=== PATIENT | female | born 1965 | race Caucasian/White ===

== ENCOUNTER 2018-05-22 07:03 | Emergency (ER) | payer BC ==
--- OUTSIDE RECORDS SUMMARY | 2018-05-22 07:26 | XMS REPORT | Continuity of Care Document ---
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 Payers Date Identification Numbers Payment Provider Subscriber Policy Number: [id number] [facility] Plan Adriano Dunham PayID: [id number] [address] [place] [address] Effective: 2012 Policy Number: [id number] [facility] Commercial Jmaes Dunham PayID: [id number] [address] [address] [place] [address] Advance Directives Description No Information Available Problems Date Description Provider Status Onset: 05/09/2013 Vitamin D deficiency Meliza Sanchez MD Active Onset: 05/09/2013 Osteoporosis Meliza Sanchez MD Active Onset: 04/18/2013 Family history of polyp of colon Meliza Sanchez MD Active Family History Date Family Member(s) Observation Comments : Father due to complications (08/10/2016) from Lewy Body Dementia (age 79 Years) Father Hypertension Father Hypercholesterolemia Onset: (age 73 Mother Cancer, Lung Years) Paternal Aunts Cancer, Colon 2 paternal uncles with colon cancer Social History Type Date Description Comments Sex Unknown Education Highest level completed, 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 [employer] Degree [place] Marital Status Lives With Spouse Diet Healthy, Well Balanced Smoke-Free Home is smoke-free Pets 2 dogs 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 Dominance RIGHT-handed Abuse No history of abuse Hobbies Biking Hobbies Running Hobbies Cross Country Skiing Hobbies Swimming Tobacco Use Start: Unknown Never Smoked Cigarettes ETOH Use Occasionally consumes alcohol Tobacco Use Start: Unknown Patient has never smoked Smoking Status Reviewed: 05/13/18 Patient has never smoked Allergies, Adverse Reactions, Alerts Date Description Reaction Status Severity Comments 04/18/2013 Iodine Rash Active 04/18/2013 Hydrocodone Severe Vomiting Active Medications Medication Date Status Form Strength Qnty SIG Indications Ordering Provider Azithromycin Active Tablets 250mg 6tabs 2 by R05 Madyson Sanchez MD today, then 1 by mouth daily x 4 more days Vitamin D Active Tablets 1000Unit 1 po qd Unknown (Cholecalcifero 000 l) Black Active Elixir daily as Unknown Elderberry(Berr 000 needed y-Flower) Ibuprofen Active Tablets 200mg 1-2 by Unknown 000 mouth every 6 hours with food or snack as needed pain Mucinex Allergy Active Tablets 180mg take 1 Unknown 000 tab by mouth twice a day as needed No Active Hx Unknown Medications 015 - 019 Vitamin C Hx Chewtabs 500mg 1 po qd Miley Sanchez - MD Meliza 015 Immunizations CPT Code Status Date Vaccine Reaction Lot # [id number] Given 03/13/2012 Tdap (Adacel) Ages 7 And Above Only [id number] Refused 05/13/2018 Flu Vaccine NOS Pt says she does not get flu shots. MEDARDO MARADIAGA 05/13/18 [id number] Refused 09/28/2017 Flu Vaccine NOS Vital Signs Date Vital Result Comment 05/17/2018 11:17am Body Temperature 98.8 F Weight 130.00 lb Heart Rate 65 /min BP Systolic 118 mmHg BP Diastolic 74 mmHg Respiratory Rate 16 /min Height 62 inches 5'2" O2 % BldC Oximetry 98 % Ra BMI (Body Mass Index) 23.8 kg/m2 05/13/2018 12:58pm Body Temperature 99.1 F tympanic Weight 129.44 lb Heart Rate 76 /min BP Systolic 114 mmHg BP Diastolic 78 mmHg Respiratory Rate 16 /min Height 62 inches 5'2" 09/28/17 O2 % BldC Oximetry 97 % Room Air BMI (Body Mass Index) 23.7 kg/m2 09/28/2017 10:31am Weight 124.00 lb Heart Rate 64 /min BP Systolic 128 mmHg BP Diastolic 60 mmHg Respiratory Rate 18 /min Height 62 inches 5'2" 09/28/17 BMI (Body Mass Index) 22.7 kg/m2 08/25/2016 10:33am Weight 128.00 lb Heart Rate 64 /min BP Systolic 102 mmHg BP Diastolic 70 mmHg Respiratory Rate 18 /min Height 62 inches 5'2" 08/25/16 BMI (Body Mass Index) 23.4 kg/m2 04/22/2016 10:43am Body Temperature 97.4 F Weight 129.00 lb Heart Rate 64 /min BP Systolic 120 mmHg BP Diastolic 80 mmHg Respiratory Rate 18 /min Height 62 inches 5'2" O2 % BldC Oximetry 98 % Ra BMI (Body Mass Index) 23.6 kg/m2 09/03/2015 2:53pm Weight 131.00 lb Heart Rate 68 /min BP Systolic 112 mmHg BP Diastolic 70 mmHg Respiratory Rate 18 /min Height 62 inches 5'2" BMI (Body Mass Index) 24.0 kg/m2 08/20/2015 9:11am Weight 131.00 lb Heart Rate 76 /min BP Systolic 112 mmHg BP Diastolic 70 mmHg Respiratory Rate 18 /min Height 62 inches 5'2" BMI (Body Mass Index) 24.0 kg/m2 07/09/2015 11:07am Weight 134.00 lb Heart Rate 76 /min BP Systolic 90 mmHg BP Diastolic 60 mmHg Respiratory Rate 18 /min Height 62 inches 5'2" BMI (Body Mass Index) 24.5 kg/m2 06/18/2015 2:53pm Weight 138.00 lb Heart Rate 76 /min BP Systolic 110 mmHg BP Diastolic 70 mmHg Respiratory Rate 18 /min Height 62 inches 5'2" BMI (Body Mass Index) 25.2 kg/m2 06/04/2015 9:31am Weight 139.00 lb Heart Rate 76 /min BP Systolic 102 mmHg BP Diastolic 70 mmHg Respiratory Rate 18 /min Height 62 inches 5'2" BMI (Body Mass Index) 25.4 kg/m2 05/14/2015 1:12pm Weight 137.00 lb Heart Rate 76 /min BP Systolic 122 mmHg BP Diastolic 70 mmHg Respiratory Rate 18 /min 04/30/2015 2:53pm Weight 137.00 lb Heart Rate 76 /min BP Systolic 100 mmHg BP Diastolic 70 mmHg Respiratory Rate 18 /min Height 61.50 inches 5'1.50" Done On 07/17/14 BMI (Body Mass Index) 25.5 kg/m2 04/12/2015 2:20pm Weight 133.00 lb Heart Rate 76 /min BP Systolic 102 mmHg BP Diastolic 58 mmHg Respiratory Rate 18 /min Height 61.50 inches 5'1.50" Done On 07/17/14 BMI (Body Mass Index) 24.7 kg/m2 07/17/2014 1:50pm Weight 134.00 lb Heart Rate 60 /min BP Systolic 110 mmHg BP Diastolic 70 mmHg Respiratory Rate 18 /min Height 61.50 inches 5'1.50" Done On 07/17/14 BMI (Body Mass Index) 24.9 kg/m2 Results Test Date Facility Test Result H/L Range Note Laboratory test 08/25/2016 [facility] Pap Smear Thin SEE NOTE 1 finding Prep Laboratory test 08/25/2016 [facility] Hepatitis C NONREACTIVE Nonreactive 2 finding Virus Antibody Vit D,25 Hydroxy 29 ng/mL Low 31-100 Comprehensive Metabolic (CMP) 08/25/2016 [facility] Sodium 142 mmol/L 135- 146 3 Potassium 4.1 mmol/L 3.5-5.2 Chloride# 105 mmol/L 97-110 4 Carbon Dioxide 30 mmol/L 24-34 Glucose 80 mg/dL 70-105 BUN 14 mg/dL 6-26 Creatinine 0.7 mg/dL 0.5-1.4 Calcium 9.6 mg/dL 8.5-10.2 Total Protein 7.2 g/dL 6.0-8.0 Albumin 4.3 g/dL 3.6-4.9 Globulin 2.9 g/dL 2.0-3.5 A/G Ratio 1.5 Ratio 1.0-2.2 Total Bilirubin 0.5 mg/dL 0.1-1.3 Alkaline Phosphatase 78 U/L 24-140 Alt 13 U/L 3-42 Ast 17 U/L 8-42 Odalis Egfr >60 >60 5 Non Odalis Egfr >60 >60 6 Anion Gap 11 mmol/L 7-16 7 Laboratory test finding 08/25/2016 [facility] TSH 1.33 uIU/mL 0.35-4.94 Lipid 08/25/2016 [facility] Cholesterol 175 mg/dL 50-199 Triglycerides 70 mg/dL 30-200 HDL 63 mg/dL 35-85 8 Chol/ HDL Ratio 2.8 ratio Low 3.7-5.6 VLDL 14 mg/dL 2-29 LDL (Calc) 98 mg/dL 20-99 9 Laboratory test 08/25/2016 [facility] HPV [facility] Allia 10 finding [phone] <SEE NOTE> Basic (BMP) 08/20/2015 [facility] Sodium 139 mmol/L 134-142 Potassium 4.4 mmol/L 3.5-5.2 Chloride 103 mmol/L 97-109 Carbon Dioxide 32 mmol/L 24-34 Glucose 86 mg/dL 70-105 BUN 12 mg/dL 6-26 Creatinine 0.7 mg/dL 0.5-1.4 Calcium 9.7 mg/dL 8.5-10.2 Anion Gap 8 mmol/L 6-14 Non Odalis Egfr >60 >60 11 Odalis Egfr >60 >60 12 CBC With Auto Diff 08/20/2015 [facility] WBC 6.2 K/uL 4.1-11.0 RBC 4.41 M/uL 4.00-5.40 Hemoglobin 14.1 gm/dL 12.0-16.0 Hematocrit 41.7 % 36.0-47.0 MCV 94.5 fL 80.0-97.0 MCH 31.9 pg 27.0-32.0 MCHC 33.8 g/dL 32.0-36.0 RDW 13.7 % 11.5-14.5 PLT Count 265 K/ul 140-400 Neutrophil 61.9 % 35.0-75.0 Lymphocyte 24.7 % 16.0-52.0 Monocyte 11.2 % High 2.0-10.0 Eosinophil 1.6 % 0.0-5.0 Basophil 0.6 % 0.0-4.0 Abs Neutrophils 3.9 K/uL 2.1-8.0 Abs Lymphocytes 1.5 K/uL 0.8-5.5 Abs Monocytes 0.7 K/uL 0.1-1.0 Abs Eosinophils 0.1 K/uL 0.0-0.5 Abs Basophils 0.0 K/uL 0.0-0.3 Laboratory test finding 08/20/2015 [facility] TSH 1.56 uIU/mL 0.35-4.94 Vit D,25 Hydroxy 30 ng/mL Low 31-100 Laboratory test 01/14/2015 [facility] Polyp Colon And/Or See Note 13 finding [phone] - Rectum Laboratory test 08/04/2013 N2N/CCD Import Vitamin 35.4 ng/mL 30.0-1 14 finding D,25-Hydroxy 00.0 Laboratory test 05/12/2013 N2N/CCD Import Cytology Pap See Note 15 finding LDL Cholesterol 04/28/2013 N2N/CCD Import Cholesterol 163 mg/dL 120-20 Profile 0 HDL Cholesterol 63 mg/dL 29-83 LDL-Cholesterol 92 mg/dL 62-185 Triglycerides 41 mg/dL 16-231 Laboratory test finding 04/28/2013 N2N/CCD Import Alb/Glob 1.1 ratio Albumin 3.5 g/dL 3.5-5.0 Alkaline Phosphatase 87 U/L 50-136 Anion Gap 7 mEq/L Low 8-16 BUN 16 mg/dL 5-23 BUN/Creat 22.8 ratio Bas% 0.5 % 0.0-1.1 Baso # 0.03 K/uL 0.0-0.1 Bilirubin,Total 0.4 mg/dL 0.2-1.2 Calcium 8.5 mg/dL 8.5-10.1 Carbon Dioxide 28 mEq/L 18-29 Chloride 108 mmol/L High 98-107 Creatinine 0.7 mg/dL 0.5-1.4 Eo% 2.7 % 0.0-6.6 Eos # 0.15 K/uL 0.0-0.5 Globulin 3.3 g/dL 1.9-4.3 Glom Filtration Rate, Estimate >60 mL/min >60 Glucose 86 mg/dL 76-115 Hematocrit 36.9 % 36.0-46.1 Hemoglobin 12.1 gm/dL 11.6-15.8 If >60 mL/min >60 16 Lymph # 1.75 K/uL 0.8-3.4 Lymph % 31.6 % 17.0-46.1 Mean Cell Volume 97.4 fl 80.9-99.0 Mean Corpuscular HGB 31.9 pg 25.9-32.7 Mean Corpuscular HGB Conc 32.8 g/dL 30.8-34.3 Mean Platelet Volume 10.5 fL 8.9-12.4 [place] # 0.63 K/uL 0.3-0.9 [place] % 11.4 % 4.3-13.2 Neut# 2.97 K/uL 1.0-7.0 Neut% 53.8 % 40.4-72.8 Platelet Count 251 K/uL 155-360 Potassium 3.6 mmol/L 3.5-5.1 Red Blood Count 3.79 M/uL Low 3.90-5.40 Red Cell Distri Width %CV 13.3 % 11.7-14.4 Red Cell Distri Width SD 45.7 fl 3-47 SGPT/Alt 19 U/L Low 30-65 Sgot/Ast 16 U/L 16-40 Sodium 139 mmol/L 136-145 Total Protein 6.8 g/dL 6.3-8.0 Vitamin D,25-Hydroxy 22.3 ng/mL Low 30.0-100.0 17 White Blood Count 5.5 K/uL 3.1-10.7 1 [facility] [place] [address] CYTOLOGY REPORT Source of Specimen(s): Thin Prep Cervical / Endocervical Pap Smear - One Vial Date of Last Menstrual Period: 2 yrs ago Menstrual History: Post-menopausal Other Clinical Conditions: Last Pap Smear: 2013 normal HPV ASSAY REQUESTED Specimen Adequacy SATISFACTORY FOR EVALUATION PRESENCE OF ENDOCERVICAL/TRANSFORMATION ZONE COMPONENT General Categorization NEGATIVE FOR INTRAEPITHELIAL LESION OR MALIGNANCY Interpretation NEGATIVE FOR INTRAEPITHELIAL LESION OR MALIGNANCY Comment HPV testing will be performed and a separate report will be issued. Reported: 08/29/2016 07:53 Electronically Signed Out By Erin BOYKIN(ASCP) lgs ICD9 Code: Z01.419 Unless otherwise specified, testing performed by [email or web address] [address] [address] 2 today 3 Updated reference range on new analyzer 4 Updated reference range on new analyzer 5 Concerning GFR Guidelines for Americans: Normal function or mild renal disease, if clinically at risk: >/=60 mL/min Moderately decreased: 30-59 Severely decreased: 15-29 Renal failure: <15 6 Concerning GFR Guidelines: Normal function or mild renal disease, if clinically at risk: >/=60 mL/min Moderately decreased: 30-59 Severely decreased: 15-29 Renal failure: <15 Glomerular Filtration Rate (GFR) is estimated based on the MDRD equation, which assumes a steady state for creatinine as recommended by the National Kidney Disease Education Program in conjunction with the National Institutes of Health and the National Kidney Foundation. Clinical conditions in which it may be necessary to measure GFR by using clearance methods include extremes of age and body size, severe malnutrition or obesity, diseases of skeletal muscle, paraplegia or quadriplegia, vegetarian diet, rapidly changing kidney function, and calculation of the dose of potentially toxic drugs that are excreted by the kidneys. 7 Updated reference range on new analyzer 8 Per NCEP ATP III Guidelines: Results lower than 40 mg/dL are suggestive of increased risk for coronary artery disease. Results > or=to 60 mg/dL are considered a negative risk factor. 9 Per NCEP ATP III Guidelines: Normal Population <130 Patients with medical conditions: CHD/DM Optimal: <100 Borderline high: 130-159 High: 160-189 Very high: >189 10 [place] [address] Amplified Molecular High Risk HPV Test Patient Name:ADRIANO DUNHAM Patient :1965 Ordering Physician:MELIZA SANCHEZ MD Accession Number [id number] Specimen(s) Received A: High Risk HPV Thin Prep Cervical / Endocervical Pap Smear - One Vial Other Case Numbers: [id number] Diagnosis RISK GROUPS RESULTS High Risk NEGATIVE Tested for HPV Types (16, 18, 31, 33, 35, 39, 45, 51, 52, 56, 58, 59, 66, 68) Reported: 08/30/2016 08:54 Electronically Signed Out By Siri Mukherjee [email or web address] Gita Joyner 11 Concerning GFR Guidelines: Normal function or mild renal disease, if clinically at risk: >/=60 mL/min Moderately decreased: 30-59 Severely decreased: 15-29 Renal failure: <15 Glomerular Filtration Rate (GFR) is estimated based on the MDRD equation, which assumes a steady state for creatinine as recommended by the National Kidney Disease Education Program in conjunction with the National Institutes of Health and the National Kidney Foundation. Clinical conditions in which it may be necessary to measure GFR by using clearance methods include extremes of age and body size, severe malnutrition or obesity, diseases of skeletal muscle, paraplegia or quadriplegia, vegetarian diet, rapidly changing kidney function, and calculation of the dose of potentially toxic drugs that are excreted by the kidneys. 12 Concerning GFR Guidelines for Americans: Normal function or mild renal disease, if clinically at risk: >/=60 mL/min Moderately decreased: 30-59 Severely decreased: 15-29 Renal failure: <15 13 OPERATION/PROCEDURE Colonoscopy; polypectomy DIAGNOSIS: "COLON, ASCENDING, BIOPSY": - INFLAMED HYPERPLASTIC POLYP. /monty 1058 GROSS The specimen is received in formalin in a properly labeled container with the patient's name and accession number. The specimen is designated as "ASCENDING COLON POLYP" and consists of couple pieces of soft loo/green tissue in aggregate measuring 0.5 x 0.4 x 0.2 cm. The entire specimen is submitted in a single cassette. /monty PRE OPERATIVE DIAGNOSIS F/H of colon ca.; H/O polyp REVIEW CODE CODE: I Signed Electronically signed ZAKIA TERRY MD [id number] 14 Vitamin D deficiency has been defined by the [place] of [employer] and an Endocrine Society practice guideline as a level of serum 25-OH vitamin D less than 20 ng/mL (1,2). The Endocrine Society went on to further define vitamin D insufficiency as a level between 21 and 29 ng/mL (2). 1. IOM ([place] of [employer]). 2010. Dietary reference intakes for calcium and D. [place]: The National Academies Press. 2. Stefan MF, Maurilio NC, Bari HONG, et al. Evaluation, treatment, and prevention of vitamin D deficiency: an Endocrine Society clinical practice guideline. JCEM. 2010; 96(7):1911-30. Performed at: RN - [facility] [address], [place], [place] [id number] Tie Tape Machine Operator: Geovanna Steven MD, Phone: [phone] Cytology Laboratory [address] [place] [address], [address] [place] [address] CYTOLOGY REPORT Name: Adriano Dunham Accession # : [id number] : 1965 (Age: 47) Sex: F Location: [facility] Med. Rec. # [id number] Date Collected: 05/09/2013 Billing #: [id number] Date Received: 05/12 Requisition # [id number] Physician(s): MELIZA SANCHEZ MD Source of Specimen: ENDOCERVICAL/ECTOCERVICAL THIN PREP Clinical Information: Date of Last Menstrual Period: 04/21/13 Specimen Adequacy: SATISFACTORY FOR EVALUATION. ADEQUATE ENDOCERVICAL/TRANSFORMATION ZONE. General Categorization: NEGATIVE FOR INTRAEPITHELIAL LESION OR MALIGNANCY. Electronic Signature Darrick Topete MD Reported: 05/14/2013 Also seen by: ASHUTOSH Mitchell ([facility]) [facility] ICD-9 Code(s) V72.31 16 Note: Persistent reduction for 3 months or more in an eGFR <60 mL/min/1.73 m2 defines CKD. Patients with eGFR values >/=60 mL/min/1.73 m2 may also have CKD if evidence of persistent proteinuria is present. The original MDRD equation for estimated GFR is not valid for patients less than 18 years of age. Additional information may be found at www.kdoqi.org. 17 Vitamin D deficiency has been defined by the [place] [employer] and an Endocrine Society practice guideline as a level of serum 25-OH vitamin D less than 20 ng/mL (1,2). The Endocrine Society went on to further define vitamin D insufficiency as a level between 21 and 29 ng/mL (2). 1. IOM ([place] [employer]). 2010. Dietary reference intakes for calcium and D. [place]: The National Academies Press. 2. Stefan MF, Maurilio LEONARD, Bari HONG, et al. Evaluation, treatment, and prevention of vitamin D deficiency: an Endocrine Society clinical practice guideline. JCEM. 2010; 96(9):2031-30. Performed at: RN - [facility] [address] [id number] Tie Tape Machine Operator: Geovanna Steven MD, Phone: [phone] Procedures Date Code Description Status 05/17/2018 81999 Measure Blood Oxygen Level Single Determination Completed 05/13/2018 98539 Measure Blood Oxygen Level Single Determination Completed 10/25/2017 859837710 Bone Mineral Density Test Completed 10/05/2017 27825375 Mammogram Completed 09/28/2017 67372 Brief Emotional/Behav Assessment W/ Scoring Doc Per Completed [facility] 09/14/2016 29220 Ultrasound Breast Unilateral Real Time W/ Image Doc Completed [facility] 08/25/2016 68463 Electrocardiogram Complete Completed 04/22/2016 41256 Measure Blood Oxygen Level Single Determination Completed 09/09/2015 82921 Bone Density Study (Dexa) Axial Skeleton Completed (Hips,Pelvis,Spine) 09/09/2015 148601310 Bone Mineral Density Test Completed 09/03/2015 59407 Electrocardiogram Complete Completed 07/29/2015 53844 Ultrasound Breast Unilateral Real Time W/ Image Doc Completed [facility] 07/29/2015 25004 Ultrasound Breast Unilateral Real Time W/ Image Doc Completed [facility] 07/09/2015 67430 Destruction Benign Lesions Other Than Skin Tags Up To Completed 14 Lesions 06/18/2015 03255 Destruction Benign Lesions Other Than Skin Tags Up To Completed 14 Lesions 06/04/2015 76867 Destruction Benign Lesions Other Than Skin Tags Up To Completed 14 Lesions 05/14/2015 28039 Destruction Benign Lesions Other Than Skin Tags Up To Completed 14 Lesions 04/30/2015 40901 Destruction Benign Lesions Other Than Skin Tags Up To Completed 14 Lesions 04/12/2015 61833 Destruction Benign Lesions Other Than Skin Tags Up To Completed 14 Lesions 01/14/2015 47923770 Colonoscopy Completed 07/17/2014 24865 Measure Blood Oxygen Level Single Determination Completed 07/02/2014 64805 Ultrasound Breast Unilateral Real Time W/ Image Doc Completed [facility] 05/15/2014 02018525 Mammogram Completed Encounters Type Date Location Provider Dx Diagnosis Office Visit 05/13/2018 [facility] Newell.9 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, 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, 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 Office Visit 09/28/2017 [facility] Meliza Sanchez MD Z01.419 Encntr for roller embosser exam 10:00a (general) (routine) w/o abn findings Z13.89 Encounter for screening for other disorder E55.9 Vitamin D deficiency, unspecified M81.0 Age-related osteoporosis w/o current pathological fracture Z83.71 Family history of colonic polyps Z12.31 Encntr screen mammogram for malignant neoplasm of breast Office Visit 08/25/2016 10:30a [facility] Meliza Sanchez MD Z01.419 Encntr for roller embosser exam (general) (routine) w/o abn findings E55.9 Vitamin D deficiency, unspecified M81.0 Age-related osteoporosis w/o current pathological fracture Z12.31 Encntr screen mammogram for malignant neoplasm of breast R00.2 Palpitations Z11.59 Encounter for screening for other viral diseases Z68.23 Body mass index (BMI) 23.0-23.9, adult Office Visit 04/22/2016 11:00a [facility] Td Adams DO J06.9 Acute upper respiratory infection, unspecified Office Visit 09/03/2015 3:00p [facility] Meliza Sanchez MD R00.2 Palpitations E55.9 Vitamin D deficiency, unspecified Office Visit 08/20/2015 9:00a [facility] Meliza Sanchez MD Z01.419 Encntr for roller embosser exam (general) (routine) w/o abn findings M81.0 Age-related osteoporosis w/o current pathological fracture B07.9 Viral wart, unspecified E55.9 Vitamin D deficiency, unspecified R00.2 Palpitations Office Visit 07/17/2014 2:00p [facility] Meliza Sanchez MD V72.31 Routine Recovery Advocate Examination V76.51 Special Screening For Malignant Neoplasms Colon Plan of Treatment Future Appointment(s):10/04/2018 10:30 am - Meliza Sanchez MD at [facility]10/01/2018 7:30 am - Schedule, Laboratory at [facility]05/17/2018 - Meliza Sanchez MDR05 CoughNew Medication:Azithromycin 250 mg - 2 by mouth today, then 1 by mouth daily x 4 more daysComments:due to duration of illness, will treat with antibiotics - advised to have a flu vaccine when she feels better.
--- OUTSIDE RECORDS SUMMARY | 2018-05-22 07:26 | XMS REPORT | Continuity of Care Document ---
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 Unavailable Payers Type Date Identification Numbers Payment Provider Subscriber Policy Number: [id number] [facility] / [facility] Adriano Dunham PayID: [id number] [address] [place] [address] Effective: 2012 Policy Number: [id number] [facility] Commercial James Dunham PayID: [id number] [address] [address] [place] [address] Advance Directives Description No Information Available Problems Date Description Provider Status Onset: 05/09/2013 Vitamin D deficiency Meliza Sancehz MD Active Onset: 05/09/2013 Osteoporosis Meliza Sanchez MD Active Onset: 04/18/2013 Family history of polyp of colon Meliza Sanchez MD Active Family History Date Family Member(s) Problem(s) Comments : Father due to complications (08/10/2016) from Lewy Body Dementia (age 79 Years) Father Hypertension Father Hypercholesterolemia Onset: (age 73 Mother Cancer, Lung Years) Paternal Aunts Cancer, Colon 2 paternal uncles with colon cancer Social History Type Date Description Comments Sex Unknown Education Highest level completed, 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 [employer] Degree [place] Marital Status Lives With Spouse Diet Healthy, Well Balanced Smoke-Free Home is smoke-free Pets 2 dogs Occupation [employer] Hand Dominance RIGHT-handed Abuse No history [...] Form Strength Qnty SIG Indications Ordering Provider Vitamin D Active Tablets 1000Unit 1 po qd Unknown (Cholecalcifero 00 l) Black Active Elixir daily as Unknown Elderberry(Berr 00 needed y-Flower) Ibuprofen Active Tablets 200mg 1-2 by Unknown 00 mouth every 6 hours with food or snack as needed pain No Active 07/18/19 Hx Unknown Medications 15 - 05/13/19 19 Vitamin C 04/18/19 Hx Chewtabs 500mg 1 po qd Megha Sanchez MD 07/18/19 15 Immunizations CPT Code Status Date Vaccine Reaction Lot # [id number] Given 03/13/2012 Tdap (Adacel) Ages 7 And Above Only [id number] Refused 05/13/2018 Flu Vaccine NOS Pt says she does not get flu shots. MEDARDO MARADIAGA 05/13/18 [id number] Refused 09/28/2017 Flu Vaccine NOS Vital Signs Date Vital Result Comment 05/13/2018 12:58pm Body Temperature 99.1 F tympanic [...] mg/dL 20-99 9 Laboratory test 08/25/2016 [facility] 10 finding [phone] <SEE NOTE> Basic (BMP) 08/20/2015 [facility] Sodium [...] 30 ng/mL Low 31-100 Laboratory test 01/14/2015 [facility] Polyp Colon And/Or See Note 13 finding (315)- - Rectum Laboratory test 08/04/2013 N2N/CCD Import [...] 30.8-34.3 Mean Platelet Volume 10.5 fL 8.9-12.4 [place] # 0.63 K/uL 0.3-0.9 [place] % 11.4 % 4.3-13.2 Neut# 2.97 K/uL [...] Blood Count 5.5 K/uL 3.1-10.7 1 LABORATORY [facility]. [facility] [place] [address] CYTOLOGY REPORT Source of Specimen(s): Thin Prep [...] Z01.419 Unless otherwise specified, testing performed by [facility] [address] [address] 2 today 3 Updated reference range on [...] High: 160-189 Very high: >189 10 [place] [address] Amplified Molecular High Risk HPV Test Patient Name:ADRIANO DUNHAM Patient :1965 Ordering Physician:MELIZA SANCHEZ MD Accession Number [id number] Specimen(s) Received A: High Risk HPV Thin Prep Cervical / Endocervical Pap Smear - One Vial Other Case Numbers: [id number] Diagnosis RISK GROUPS RESULTS High Risk NEGATIVE [...] "COLON, ASCENDING, BIOPSY": - INFLAMED HYPERPLASTIC POLYP. CADEN/monty 1058 GROSS The specimen is received in formalin in a properly labeled container with the patient's name and accession number. The specimen is designated as "ASCENDING COLON POLYP" and consists of couple pieces of soft loo/green tissue in aggregate measuring 0.5 x 0.4 x 0.2 cm. The entire specimen is submitted in a single cassette. MH/monty PRE OPERATIVE DIAGNOSIS F/H of colon ca.; H/O polyp REVIEW CODE CODE: I Signed Electronically signed ZAKIA TERRY MD 1209 14 Vitamin D deficiency has been defined by the [place] of [employer] and an Endocrine Society practice guideline as a level of serum 25-OH vitamin D less than 20 ng/mL (1,2). The Endocrine Society went on to further define vitamin D insufficiency as a level between 21 and 29 ng/mL (2). 1. IOM ([place] of [employer]). 2010. Dietary reference intakes for calcium and D. García [place]: The National Academies Press. 2. Stefan MF, Maurilio [place], Bari HONG, et al. Evaluation, treatment, and prevention of vitamin D deficiency: an Endocrine Society clinical practice guideline. JCEM. 2010; 96(7):1911-30. Performed at: RN - [facility] [address], [place], [place] [id number] Superintendent Terminal: Geovanna Steven MD, Phone: [phone] Cytology Laboratory [address] [place] [address], [address] [place] [address] CYTOLOGY REPORT Name: Adriano Dunham Accession # : [id number] : 1965 (Age: 47) Sex: F Location: [facility] Med. Rec. # [id number] Date Collected: 05/09/2013 Billing #: [id number] Date Received: 05/12 Requisition # [id number] Physician(s): MELIZA SANCHEZ MD Source of Specimen: ENDOCERVICAL/ECTOCERVICAL THIN PREP Clinical Information: Date of Last Menstrual Period: 04/21/13 Specimen Adequacy: SATISFACTORY FOR EVALUATION. ADEQUATE ENDOCERVICAL/TRANSFORMATION ZONE. General Categorization: NEGATIVE FOR INTRAEPITHELIAL LESION OR MALIGNANCY. md Electronic Signature Darrick Topete MD Reported: 05/14/2013 Also seen by: ASHUTOSH Mitchell ([facility]) [facility] ICD-9 Code(s) V72.31 16 Note: Persistent [...] D deficiency has been defined by the [place] of [employer] and an Endocrine Society practice guideline as a level of serum 25-OH vitamin D less than 20 ng/mL (1,2). The Endocrine Society went on to further define vitamin D insufficiency as a level between 21 and 29 ng/mL (2). 1. IOM ([place] of [employer]). 2010. Dietary reference intakes for calcium and D. García [place]: The National Academies Press. 2. Stefan MF, Maurilio NC, Bari HONG, et al. Evaluation, treatment, and prevention of vitamin D deficiency: an Endocrine Society clinical practice guideline. JCEM. 2010; 96(7):1911-30. Performed at: RN - [facility] [address] [id number] Superintendent Terminal: Geovanna Steven MD, Phone: [phone] Procedures Date Code Description Status 05/13/2018 80231 Measure Blood Oxygen Level Single Determination Completed 10/25/2017 838816479 Bone Mineral Density Test Completed 10/05/2017 95313145 Mammogram Completed 09/28/2017 56241 Brief Emotional/Behav Assessment W/ Scoring Doc Per Completed [facility] 09/14/2016 36356 Ultrasound Breast Unilateral Real Time W/ Image Doc Completed [facility] 08/25/2016 12199 Electrocardiogram Complete Completed 04/22/2016 30801 Measure Blood Oxygen Level Single Determination Completed 09/09/2015 25512 Bone Density Study (Dexa) Axial Skeleton Completed (Hips,Pelvis,Spine) 09/09/2015 201920268 Bone Mineral Density Test Completed 09/03/2015 68892 Electrocardiogram Complete Completed 07/29/2015 02666 Ultrasound Breast Unilateral Real Time W/ Image Doc Completed [facility] 07/29/2015 42816 Ultrasound Breast Unilateral Real Time W/ Image Doc Completed [facility] 07/09/2015 04886 Destruction Benign Lesions Other Than Skin Tags Up To Completed 14 Lesions 06/18/2015 50280 Destruction Benign Lesions Other Than Skin Tags Up To Completed 14 Lesions 06/04/2015 06915 Destruction Benign Lesions Other Than Skin Tags Up To Completed 14 Lesions 05/14/2015 40894 Destruction Benign Lesions Other Than Skin Tags Up To Completed 14 Lesions 04/30/2015 04431 Destruction Benign Lesions Other Than Skin Tags Up To Completed 14 Lesions 04/12/2015 43111 Destruction Benign Lesions Other Than Skin Tags Up To Completed 14 Lesions 01/14/2015 12488118 Colonoscopy Completed 07/17/2014 93904 Measure Blood Oxygen Level Single Determination Completed 07/02/2014 92434 Ultrasound Breast Unilateral Real Time W/ Image Doc Completed [facility] 05/15/2014 25128965 Mammogram Completed Encounters Type Date Location Provider Dx Diagnosis Office Visit 09/28/2017 [facility] Meliza Sanchez MD Z01.419 Encntr for cytology supervisor exam 10:00a (general) (routine) w/o abn findings Z13.89 Encounter for screening for other disorder E55.9 Vitamin D deficiency, unspecified M81.0 Age-related osteoporosis w/o current pathological fracture Z83.71 Family history of colonic polyps Z12.31 Encntr screen mammogram for malignant neoplasm of breast Office Visit 08/25/2016 10:30a [facility] Mleiza Sanchez MD Z01.419 Encntr for cytology supervisor exam (general) (routine) w/o abn findings E55.9 Vitamin D deficiency, unspecified M81.0 Age-related osteoporosis w/o current pathological fracture Z12.31 Encntr screen mammogram for malignant neoplasm of breast R00.2 Palpitations Z11.59 Encounter for screening for other viral diseases Z68.23 Body mass index (BMI) 23.0-23.9, adult Office Visit 04/22/2016 11:00a [facility] Td Adams DO J06.9 Acute upper respiratory infection, unspecified Office Visit 09/03/2015 3:00p [facility] Meliza Sanchez MD R00.2 Palpitations E55.9 Vitamin D deficiency, unspecified Office Visit 08/20/2015 9:00a [facility] Meliza Sanchez MD Z01.419 Encntr for cytology supervisor exam (general) (routine) w/o abn findings M81.0 Age-related osteoporosis w/o current pathological fracture B07.9 Viral wart, unspecified E55.9 Vitamin D deficiency, unspecified R00.2 Palpitations Office Visit 07/17/2014 2:00p [facility] Meliza Sanchez MD V72.31 Routine Order Processor Examination V76.51 Special Screening For Malignant Neoplasms Colon Plan of Treatment Future Appointment(s):10/04/2018 10:30 am - Meliza Sanchez MD at [facility]10/01/2018 7:30 am - Schedule, Laboratory at [facility]05/13/2018 - Chuyita Tobar NPJ06.9 Acute upper respiratory infection, unspecifiedComments:Increase rest and fluids.Tylenol 1000mg every 4-6 hours or ibuprofen 600-800mg every 6-8 hours with food as needed for headache or fever.Recommend Mucinex(Guaifenesin) 600mg every 12 hours until cough has resolved.Humidifier or steam therapy may be helpful.Viral infections last 10-14 days and cough may linger as long as 4-6 weeks.Follow up:PRN for fever >101 or no improvement in 1 week.
[2018-05-22 07:40] VITALS: BP 105/73
--- NOTE | 2018-05-22 07:58 | UC ---
Nausea/Vomiting/Diarrhea HPI - HPI Summary HPI Summary: 52 year old woman comes in today with a chief complaint of nausea. Nausea started 4 days ago. Patient's had upper respiratory tract infection symptoms for about 3-1/2 weeks now. She a lot sicker last week and had body aches and fevers and went to see her doctor if she had chest congestion patient doctor started her on azithromycin. Nausea started right after taking the azithromycin. Each day when she took the azithromycin the nausea would increase. No vomiting no abdominal pain no diarrhea no change in urination. Respiratory tract infection symptoms have improved. Patient's tried some over- the-counter antinausea medicines which did not help. No fevers or chills. - History of Current Complaint Chief Complaint: UCGI Stated Complaint: NAUSEOUS Time Seen by Provider: 05/22/18 07:42 Pain Intensity: 0 - Allergies/Home Medications Allergies/Adverse Reactions: Allergies Allergy/AdvReac Type Severity Reaction Status Date / Time hydrocodone Allergy Vomiting Verified 05/22/18 07:40 iodine Allergy Rash Verified 05/22/18 07:40 Home Medications: Home Medications Azithromyxin ANANDA (NF) [Z-Ananda (Zithromax) 250 mg tabs #6] 2 tab PO .TODAY, THEN 1 DAILY 05/22/18 [History Confirmed 05/22/18] Cholecalciferol (Vitamin D3) [Vitamin D3] 1,000 unit PO 05/22/18 [History Confirmed 05/22/18] PMH/Surg Hx/FS Hx/Imm Hx Previously Healthy: Yes - Surgical History Surgical History: Yes Surgery Procedure, Year, and Place: benign skin mass removed, wisdom teeth extraction - Family History Known Family History: Positive: Non-Contributory - Social History Alcohol Use: None Substance Use Type: None Smoking Status (MU): Never Smoked Tobacco Review of Systems All Other Systems Reviewed And Are Negative: Yes Constitutional: Positive: Negative Skin: Positive: Negative Eyes: Positive: Negative ENT: Positive: Negative Respiratory: Positive: Negative Cardiovascular: Positive: Negative Gastrointestinal: Positive: Nausea Genitourinary: Positive: Negative Motor: Positive: Negative Neurovascular: Positive: Negative Musculoskeletal: Positive: Negative Neurological: Positive: Negative Psychological: Positive: Negative Is Patient Immunocompromised?: No Physical Exam Triage Information Reviewed: Yes Appearance: Well-Appearing, No Pain Distress, Well-Nourished Vital Signs: Initial Vital Signs Temp 97.5 F 05/22/18 07:27 Pulse 57 05/22/18 07:27 Resp 18 05/22/18 07:27 BP 105/73 05/22/18 07:27 Pulse Ox 99 05/22/18 07:27 Vital Signs Reviewed: Yes Eye Exam: Normal Eyes: Positive: Conjunctiva Clear ENT: Positive: Pharynx normal, TMs normal Neck exam: Normal Neck: Positive: Supple Respiratory: Positive: Lungs clear, Normal breath sounds, No respiratory distress Cardiovascular: Positive: RRR Abdomen Description: Positive: Nontender, Soft Bowel Sounds: Positive: Present Musculoskeletal Exam: Normal Musculoskeletal: Positive: Strength Intact, ROM Intact Neurological Exam: Normal Neurological: Positive: Alert, Muscle Tone Normal Psychological Exam: Normal Psychological: Positive: Age Appropriate Behavior Skin Exam: Normal Naus/Vom/Diarrhea Course/Dx - Course Course Of Treatment: Overall plan is to stop the 80s azithromycin and start Zofran. Patient has no fevers no abdominal pain. She can follow-up with her primary care doctor as needed or return here if she worsens or any questions or concerns. - Differential Dx/Diagnosis Provider Diagnosis: Nausea Condition At Discharge: Stable Discharge - Sign-Out/Discharge Documenting (check all that apply): Patient Departure All imaging exams completed and their final reports reviewed: No Studies - Discharge Plan Condition: Stable Disposition: HOME Prescriptions: Ondansetron ODT TAB* [Zofran 4 MG Odt TAB*] 4 mg PO Q6H PRN #10 tab.odt PRN Reason: Nausea Patient Education Materials: Acute Nausea and Vomiting (ED) Referrals: Meliza Galan MD [Primary Care Provider] - Additional Instructions: FOLLOW UP WITH YOUR DOCTOR IF NOT COMPLETELY IMPROVED. GET RECHECKED SOONER WITH ANY WORSENING OF YOUR CONDITION OR QUESTIONS OR CONCERNS. - Billing Disposition and Condition Condition: STABLE Disposition: Home
[2018-05-22 08:00] LABS: Influenza A Molecular NEGATIVE (Negative); Influenza B Molecular NEGATIVE (Negative)
== END 2018-05-22 08:07 | disposition home or self-care (01) ==
LOC: UCCORT 07:03
DX: R11.0 Nausea (principal); Z88.8 Allergy status to other drugs, medicaments and biological substances; Z88.5 Allergy status to narcotic agent
CPT/HCPCS: 99202; G0463